=== PATIENT | female | born 1985 | race Caucasian/White ===

== ENCOUNTER 2017-07-08 06:11 | Day surgery (SDC) | payer OTHER ==
[~2017-07-08] VITALS: Ht 162.6 cm; Wt 74.8 kg
[~2017-07-08 06:11] MED LIST: ACET50TA PO; CLAR10CA3 PO; IBUP80TA PO; NORA0.35 PO; NORCOTAB PO; VITMTA PO; [UNRECOGNIZED DRUG - OTHER] PO; [UNRECOGNIZED DRUG - OTHER] PO
[2017-07-08] MEDS ORDERED: LR 1,000 ML IV SCH ×2 (06:15→09:15)
[2017-07-08 06:53] LABS: CONTROL LINE UCG INT CTR LINE PRESENT
[2017-07-08] MEDS ORDERED: ONDANSETRON 4MG/2ML VIAL (J2405) As Ordered ONE (07:13)
[2017-07-08] MEDS ORDERED: fentaNYL 100 MCG/2 ML INJECTION (J3010) As Ordered ONE ×3 (07:13→09:06)
[2017-07-08] MEDS ORDERED: METOCLOPRAMIDE INJ 10MG/2ML VIAL (J2765) As Ordered ONE (07:13)
[2017-07-08] MEDS ORDERED: LIDOCAINE 2% INJ 100 MG/5 ML SDV (FOR ANES.) As Ordered ONE (07:13)
[2017-07-08] MEDS ORDERED: ROCURONIUM BROMIDE 50 MG/5 ML VIAL/SYRINGE As Ordered ONE (07:13)
[2017-07-08] MEDS ORDERED: MIDAZOLAM INJ 2 MG/2 ML VIAL (J2250) As Ordered ONE (07:13)
[2017-07-08] MEDS ORDERED: PROPOFOL 200 MG/20 ML VIAL As Ordered ONE (07:13)
[2017-07-08] MEDS ORDERED: KETOROLAC 60 MG/2 ML VIAL (J1885) As Ordered ONE (07:13)
[2017-07-08] MEDS ORDERED: LIDOCAINE 1% SDV INJ 30 ML VIAL As Ordered ONE (07:19)
[2017-07-08] MEDS ORDERED: BUPIVACAINE HCL 0.25% 30 ML VIAL As Ordered ONE (07:19)
[2017-07-08] MEDS ORDERED: PERCOCET 5MG/325MG TAB As Ordered ONE (09:06)
[2017-07-08] MEDS: fentaNYL 100 MCG/2 ML INJECTION (J3010) IV PRN ×4 (09:08→09:25)
[2017-07-08] MEDS ORDERED: PERCOCET 5MG/325MG TAB PO PRN (09:15)
[2017-07-08] MEDS ORDERED: KETOROLAC 30 MG/ML VIAL (J1885) IV PRN (09:15)
[2017-07-08] MEDS ORDERED: ONDANSETRON 4MG/2ML VIAL (J2405) IV PRN ×2 (09:15)
[2017-07-08] MEDS ORDERED: NORCO, ANEXSIA 5/325MG TABLET (HYDROcodone/ACETAMINOPHEN) PO PRN ×2 (09:15)
[2017-07-08 11:45] VITALS: BP 133/70
--- NOTE | 2017-07-26 12:24 | ROOPDOC ---
[facility] Report Of Operation Report of Operation DATE OF PROCEDURE: 07/08/2017 PREPROCEDURE DIAGNOSES: Umbilical hernia. POSTPROCEDURE DIAGNOSES: And small umbilical hernia with incarcerated preperitoneal fat. PROCEDURE: Laparoscopic umbilical hernia repair with 9 cm Parietex composite mesh has intraperitoneal onlay. SURGEON: Adina Piper MD FOOD AND BEVERAGE DIRECTOR: None ANESTHESIA: Gen. anesthesia ESTIMATED BLOOD LOSS: Approximately 10 mL. COMPLICATIONS: None. 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 PROCEDURE NOTE: A small hernia defect containing incarcerated preperitoneal fat was found. DESCRIPTION OF PROCEDURE: Patient was given a dose of Ancef 2 g IV for prophylactic antibiotic. She is brought to the operating room, placed supine on the table. Sequential Compression boots placed on both lower extremities for DVT prophylaxis. General endotracheal anesthesia started without any difficulty. Her abdomen was then prepped and draped widely in usual sterile fashion.Timeout was performed to verify correct patient, procedure site and additional clinical information prior to beginning the procedure. Entry to the abdomen done through a small incision at the left upper quadrant area, laterally placed close to the anterior axillary line. The Veress needle was inserted. Intra-abdominal location confirmed with saline drop technique. CO2 insufflation done to a pressure of 15 mmHg. Using the same incision a 5 mm Visiport was placed under direct vision of laparoscope. She was placed in a slight right lateral decubitus to gain some space on the left side of the abdomen. A second working port was placed at the left lower quadrant area above the anterior superior iliac spine level. We used a 5 mm 30 laparoscope for the procedure. A small umbilical defect was found. There is a nodularity on the superior portion of the umbilicus that I can palpate. This was reduced back into the abdomen. The peritoneal tissue was likewise dissected free the incarcerated preperitoneal fat tissue. Once the whole lump was reduced into the abdomen where the check for adequate hemostasis. The umbilical ligaments likewise a falciform ligaments were mostly flat and well away from the area for placement of the mesh. I chose a 9 cm round prepped X composite mesh. 2 transabdominal sutures were placed at the 6 and 12 o'clock position. A template of the mesh was created and its positioning centered onto the umbilicus was marked on the abdominal wall. This was rolled tightly, the 5 mm left lower quadrant port was removed and the mesh was placed through this incision into the abdomen. After replacing back the 5 mm port, we unrolled the mesh. An centered the mesh to the umbilical defect. Using a Josué Escalera passer suture a small stab incision created at the 6 and 12 o'clock position. The transabdominal sutures were pulled out transabdominally. I decreased the abdominal pressure to 10 mmHg. With adequate coverage of the umbilical defect and the mesh is laying flat on the abdominal wall. The transabdominal sutures was tied off snug but not tight. 2 rows of secure strap absorbable tacks were placed roughly 2 cm apart. The outer row was at the periphery of the mesh. The inner row was just outside of the umbilical defect. We checked for adequate hemostasis. The preperitoneal fat that was removed was retrieved back through one of our port sites. The abdomen was then deflated and all ports removed. The port site skin incision was closed with 4-0 Monocryl in subcutaneous fashion. Dermabond dressing was used to cover the port sites as well as the stab incisions. Patient was then promptly awakened, extubated and brought to recovery room stable. ADINA PIPER MD Jul 26, 2017 12:24
== END 2017-07-08 11:46 | disposition home or self-care (01) ==
LOC: M SDC 06:11
PROVIDERS: ATTEND Surgery
DX: K42.0 Umbilical hernia with obstruction, without gangrene (principal); F41.9 Anxiety disorder, unspecified; Z88.8 Allergy status to other drugs, medicaments and biological substances; Z79.3 Long term (current) use of hormonal contraceptives; Z72.0 Tobacco use
CPT/HCPCS: 49653; 84703; C1781; J0690; J1885; J2250; J2405; J2765; J3010

== ENCOUNTER → 2017-07-21 | Outpatient (CLI) | payer OTHER ==
--- NOTE | 2017-07-21 17:30 | REP ---
Clinical: Preoperative assessment. Umbilical hernia . Comparison: No. Technique: PA and lateral. Findings: The mediastinum and cardiac silhouette are normal. The lung petty are clear and without acute consolidation, effusion, or pneumothorax. The skeletal structures are intact and normal. Impression: 1. No acute cardiopulmonary process. Signed by Fidencio Osorio MD 07/21/2017 05:21 P
== END ==
LOC: M RAD 09:12
PROVIDERS: ATTEND Surgery
DX: K42.9 Umbilical hernia without obstruction or gangrene (principal)

== ENCOUNTER 2018-07-20 18:17 | Emergency (ER) | payer OTHER ==
[2018-07-20] MEDS: PANTOPRAZOLE 40MG INJ (PROTONIX) (C9113) IV (20:09)
[2018-07-20] MEDS: NS 1,000 ML IV (20:09)
[2018-07-20] MEDS: ONDANSETRON 4MG/2ML VIAL (J2405) IV (20:09)
[2018-07-20 20:14] LABS: BASO # 0.1 10^3/uL (0.0-0.2); BASO % 0.6 % (0.0-1.0); EOS # 0.1 10^3/uL (0.0-0.50); EOS % 1.8 % (0.0-3.0); HEMATOCRIT 46.6 % (36.0-47.0); HEMOGLOBIN 15.6 g/dl (12.0-15.5); IMMATURE GRANULOCYTE % 0.5 % (0-3.0); LYMPH % 25.5 % (24.0-44.0); MEAN CORPUSCULAR HEMOGLOBIN 29.7 pg (27.0-33.0); MEAN CORPUSCULAR HGB CONC 33.5 g/dl (32.0-36.5); MEAN CORPUSCULAR VOLUME 88.6 fl (80.0-96.0); MONO # 0.7 10^3/uL (0.0-0.8); MONO % 8.5 % (0.0-5.0); NEUTROPHILS % 63.1 % (36.0-66.0); PLATELET COUNT, AUTOMATED 246 10^3/uL (150-450); RED BLOOD COUNT 5.26 10^6/uL (4.00-5.40); RED CELL DISTRIBUTION WIDTH 11.8 % (11.5-14.5); WHITE BLOOD COUNT 7.9 10^3/uL (4.0-10.0)
[2018-07-20 20:21] LABS: APPEARANCE, URINE CLEAR (CLEAR); BACTERIA, URINE AUTO NEGATIVE (NEGATIVE); BILIRUBIN, URINE AUTO NEGATIVE (NEGATIVE); BLOOD, URINE BLOOD NEGATIVE (NEGATIVE); COLOR, URINE YELLOW (YELLOW); GLUCOSE, URINE (UA) AUTO NEGATIVE (NEGATIVE); KETONE, URINE AUTO NEGATIVE (NEGATIVE); LEUKOCYTE ESTERASE, URINE AUTO NEGATIVE (NEGATIVE); NITRITE, URINE AUTO NEGATIVE (NEGATIVE); PROTEIN, URINE AUTO NEGATIVE (NEGATIVE); RBC, URINE AUTO 0 /HPF (0-3); SPECIFIC GRAVITY URINE AUTO 1.012 (1.002-1.035); SQUAMOUS EPITHELIAL CELL UR AU 2 /HPF (0-6); UROBILINOGEN, URINE AUTO 0.2 mg/dL (0.0-2.0); WBC, URINE AUTO 0 /HPF (0-3)
[2018-07-20 20:25] LABS: ALBUMIN 4.5 GM/DL (3.2-5.2); ALBUMIN/GLOBULIN RATIO 1.36 (1.00-1.93); ALKALINE PHOSPHATASE 59 U/L (45-117); ALT/SGPT 55 U/L (12-78); AMYLASE 45 U/L (25-115); ANION GAP 8 MEQ/L (8-16); AST/SGOT 33 U/L (7-37); BILIRUBIN,DIRECT 0.1 MG/DL (0.0-0.2); BILIRUBIN,TOTAL 0.4 MG/DL (0.2-1.0); BLOOD UREA NITROGEN 12 MG/DL (7-18); CALCIUM LEVEL 9.7 MG/DL (8.5-10.1); CARBON DIOXIDE LEVEL 29 MEQ/L (21-32); CHLORIDE LEVEL 103 MEQ/L (98-107); CREATININE FOR GFR 0.77 MG/DL (0.55-1.30); GLOMERULAR FILTRATION RATE > 60.0 (>60); GLUCOSE, FASTING 80 MG/DL (70-100); LIPASE 127 U/L (73-393); SODIUM LEVEL 140 MEQ/L (136-145); TOTAL PROTEIN 7.8 GM/DL (6.4-8.2)
[2018-07-20 20:46] LABS: ADD MORPHOLOGY? YES; POS COUNT POS FLAG
[2018-07-20 20:47] LABS: PLATELET ESTIMATE NORMAL (NORMAL)
[2018-07-20 20:48] LABS: PLATELET CLUMPS SMALL AMT
== END 2018-07-20 21:26 | disposition home or self-care (01) ==
LOC: M ED 18:17
DX: K29.00 Acute gastritis without bleeding (principal); Z79.899 Other long term (current) drug therapy; Z79.3 Long term (current) use of hormonal contraceptives; Z88.2 Allergy status to sulfonamides; Z88.8 Allergy status to other drugs, medicaments and biological substances; Z87.891 Personal history of nicotine dependence
CPT/HCPCS: C9113

== ENCOUNTER → 2019-07-10 | Outpatient (REF) | payer OTHER ==
[~2019-07-10] MED LIST changes: -ACET50TA PO; +AMOX-CLAV; +BENA25CA4 PO; +CITA20TA6; +HYDR-3715 PO; +MAPA500T17 PO; -NORCOTAB PO; +PROT1TAB2 PO; +ZOFR4TAB14 PO
[2019-07-13 08:10] LABS: BORDETELLA PARAPERTUSSIS PCR Negative (Negative); BORDETELLA PERTUSSIS BY PCR Negative (Negative)
== END ==
LOC: M LAB REF 09:05
PROVIDERS: ATTEND Physician Assistant Medical
DX: A37.90 Whooping cough, unspecified species without pneumonia (principal)

== ENCOUNTER 2019-09-24 17:26 | Outpatient (CLI) | payer OTHER ==
[~2019-09-24] VITALS: Ht 162.6 cm; Wt 93.4 kg
[2019-09-24 17:49] VITALS: BP 125/70
[2019-09-24] MEDS ORDERED: VITA65TA PO (18:03)
[2019-09-24] MEDS ORDERED: TUMS500C PO (18:03)
--- NOTE | 2019-09-24 18:42 | IPNPDOC ---
Text Note Date of Service The patient was seen on 09/24/19. NOTE 34 yo at 36+5 weeks gestation presented to L&D with the complaint of intermittent cramping since last night that has persisted throughout the day. In addition, she hasn't felt her baby move as much as usual this afternoon. She denies any vaginal bleeding or leakage of fluid. She has had mild discharge. Chaperoned by L&D RN Vitals - VSS, afebrile, normotensive, non tachycardic General - AAOX3, sitting up in bed, NAD, pleasant and conversant Cervix - Ft/50/high FHR tracing - Cat I with moderate variability, +accels, no decels, rare ctx on toco. Very active fetus. Lyndsay felt significant movement while in triage and was reassured. Cat I tracing throughout monitoring. Cervix only FT dilated and she is not in labor. She has an appointment scheduled for next week. Return to care sooner for any urgent concerns. All questions answered. DO KERON Cedillo Fishbone, I+O VSAugie, I+O Vital Signs Date Time Temp Pulse Resp B/P (MAP) Pulse Ox O2 Delivery O2 Flow Rate FiO2 09/24/19 18:00 77 09/24/19 17:49 98.6 18 125/70 (88) MANDA VIDES DO Sep 24, 2019 18:42
[2019-09-24 18:53] VITALS: BP 124/66
== END 2019-09-24 19:00 | disposition home or self-care (01) ==
LOC: M LDO 17:26
PROVIDERS: ATTEND Obstetrics & Gynecology
DX: O26.893 Other specified pregnancy related conditions, third trimester (principal); R10.30 Lower abdominal pain, unspecified; O36.8130 Decreased fetal movements, third trimester, not applicable or unspecified; O47.03 False labor before 37 completed weeks of gestation, third trimester; Z3A.36 36 weeks gestation of pregnancy
CPT/HCPCS: 59025; G0378; G0463

== ENCOUNTER 2019-09-27 11:22 | Outpatient (CLI) | payer OTHER ==
[~2019-09-27] VITALS: Ht 162.6 cm; Wt 94.6 kg
[~2019-09-27 11:22] MED LIST changes: +TUMS500C PO; +VITA65TA PO
[2019-09-27 11:45] VITALS: BP 116/64
--- NOTE | 2019-09-27 14:06 | REP ---
Limited obstetric sonography: History: Arrhythmia. Supervision of . Findings: Scanning demonstrates a single living intrauterine gestation in a cephalic lie. Placenta is right lateral and fundal without evidence of previa or abruption, grade 2. heart rate is recorded at 129 beats per minute. Amniotic fluid is subjectively normal. STEVIE is normal 21.1 cm. Biophysical profile score is eight out of a possible eight. SD ratio in the umbilical cord artery by Doppler is 2.63 (1.6 to 2.60). Electronically Signed by Uriel Daniel MD 09/27/2019 01:59 P
--- NOTE | 2019-09-27 18:21 | IPNPDOC ---
Text Note Date of Service The patient was seen on 09/27/19. NOTE S: Ms. Arnett is a 34yo at 37+1wks who presents to LND triage for NST. Ms. Arnett had a growth US at [facility] today in which a arrhythmia was detected; he notified this administrative underwriter about his findings. She was initially sent to the OB clinic for an NST, but once on the monitor, a deceleration was noted, as well as the audible arrhythmia. She was then brought here for assessment. Ms. Arnett reports +FM, denies LOF/VB/CTX. Her has been mostly uncomplicated; she has a history of macrosomia x2; last with shoulder dystocia. O: VSS FHR 145, moderate variability, + accels, no decels noted CTX: none BPP: 8/8 Consulted with MFM from [facility] and he recommended a BPP and repeat NST in a week. A: 34yo at 37+1wks, Reactive NST (+audible arrhythmia); BPP 8/8; overall reassuring status f/u [id number] for MABEL and NST in clinic f/u in LND PRN Labor/danger precautions reviewed IOL scheduled for [id number] VS,Fishbone, I+O VS, Fishbone, I+O Vital Signs Date Time Temp Pulse Resp B/P (MAP) Pulse Ox O2 Delivery O2 Flow Rate FiO2 09/27/19 11:45 98.1 77 16 116/64 (81) OLAMIDE ROCHE CNM Sep 27, 2019 18:21
== END 2019-09-27 14:38 | disposition home or self-care (01) ==
LOC: M LDO 11:22
PROVIDERS: ATTEND Registered Nurse Maternal Newborn
DX: O76 Abnormality in fetal heart rate and rhythm complicating labor and delivery (principal); Z3A.37 37 weeks gestation of pregnancy
CPT/HCPCS: 59025; 76815; 76819; 76820; G0378; G0463

== ENCOUNTER 2019-10-12 22:04 | Inpatient (IN) | payer OTHER ==
[~2019-10-12] VITALS: Ht 162.6 cm; Wt 93.8 kg
[2019-10-12 22:20] VITALS: BP 126/70
[2019-10-12] MEDS ORDERED: PENICILLIN G POTASSIUM IV 5 MU in D5W MINI-BAG PLUS 100 ML IV STA (22:51)
[2019-10-12] MEDS ORDERED: LACTATED RINGER'S 1000 ML IV STA (22:51)
--- NOTE | 2019-10-12 23:06 | HPEPDOC ---
Obstetrical History & Physical General Date of Admission Oct 12, 2019 at 22:04 History of Present Illness 34 yo at 39+2 weeks gestation by LMP of 10Jan2019 c/w 8+5 week US on presents to L&D with the complaint of a gush of clear fluid at 2119 followed by continuous leaking ever since. She denies feeling any significant contractions or vaginal bleeding. She endorses excellent movement. Chief Complaint: LOF, term Information Provided By: Patient Age: 34 : 3 Term: 2 Pre-term: 0 Abortions: 0 Livin Care Care: Good Care Dating Final EDC: Oct 17, 2019 Final EDC for Daily Update: Oct 17, 2019 Final EDC by: LMP LMP: Jan 10, 2019 1st Trimester Date: Mar 13, 2019 (8+5 week US on 13Mar2019 c/w LMP dating. REG remains 17Oct2019.) Antepartum Course Diagnos(e)s History of macrosomia with shoulder dystocia last ---> delivered at 41 weeks. Awareness. heart rate arrhythmia ---> likely benign. Awareness for after delivery. Quit smoking GBS positive Anxiety --> previously on celexa but symptoms stable Past Medical History Past Obstetrical History : Past Obstetrical History: Multigravida (Term X2 both at 41 weeks. 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 Past Medical History Medical History GERD Anxiety --> previously on celexa but now stable off Surgical History: Appendectomy, Other (L/S umbilical hernia repair) Family History Significant Family History: No pertinent family hx Social History Marital Status: Family situation: Spouse/partner home Psychosocial History: Anxiety * Smoker: former Smoker (Quit smoking January 2019) Alcohol: Denies Drugs: denies Imunizations Tdap status: current Influenza Status: current Allergies Coded Allergies: Sulfa (Sulfonamide Antibiotics) (Verified Adverse Reaction, Mild, NAUSEA, 09/27/19) Medications Scheduled Calcium Carbonate (Tums) 200 Mg Tab.chew, 2 TAB PO QID for cough and congestion Vit 10/Iron Fum/Folic (Vitafol-Ob Caplet) 1 Each Tablet, 1 TAB PO DAILY Physical Examination Physical Examination Chaperoned by L&D RN GENERAL: Alert and oriented times three. ABDOMEN: Gravid and non-tender to touch. FETUS: Is vertex (VTX) by sterile vaginal examination (SVE) EXTREMITIES: No edema. PELVIC: Grossly ruptured membranes, clear fluid, confirmed during cervical exam. Nitrazine positive. Laboratory Data [facility] Laboratory Tests 2 10/12/19 22:09: Serology Scanned Report Hepatitis B Testing Urine Culture: No Growth Pertinent Laboratoy Data Blood Type: B+ RBC Antibody Screen: Negative HIV: Negative Hepatitis B: Negative Hepatitis C: Unknown Rapid Plasma Reagin: Nonreactive Rubella: Immune Varicella: Immune Chlamydia/Gonorrhea: Negative Group B Streptococcus: Positive Quad Screen Test: Unknown Cystic Fibrosis: Unknown Glucose Tolerance Test: 168 (Abnormal early 1hr GTT, normal 3 hr GTT X2) Anatomy Ultrasound Ultrasound Date: Jun 12, 2019 Placenta Location: Posterior Normal Anatomy: Yes Placenta Previa: No Vaginal Examination Dilation: 3 cm Effacement: 80% Station: -2 Cervical Consistency: Soft Cervical Position: Middle Presentation: Cephalic presentation Position: Vertex (occiput) Assessment Heart Rate (FHR): 145 Variability: Moderate Accelerations: Positive Decelerations: None (Rare dropped beats c/w known FHR arrhythmia ) Tocometer Contractions: Yes Frequency: irregular Duration: less than 60 seconds Strength: palpated as mild (Patient doesn't feel contractions) Assessment/Plan Assessment 34 yo at 39+2 weeks gestation presented to L&D with grossly ruptured membranes. Plan Admit to L&D for expectant management of grossly ruptured membranes. If labor does not begin within the next several hours, will start pitocin. Apply IV fluids. GBS positive. Initiate IV PCN protocol. Regular diet. Patient may have epidural if desired. Anticipate . Perez Pereyra, DO Labor and Delivery Counseling L&D counseling and consent for Vaginal / Operative vaginal delivery Deliver your baby through the vagina with possible assistance of forceps or vacuum device if needed for maternal or indications. Forceps and vacuum are devices that can assist with vaginal delivery when normal pushing efforts cannot achieve delivery on their own or when delivery is needed in an emergency for baby's well-being. Medications may be required to induce or augment (help) your labor in order to achieve a vaginal delivery. An episiotomy may be required to help your baby to delivery vaginally. You may also require repair of any lacerations or tears of your vagina or vulva that are caused by delivery. In some cases, emergencies can occur that require an emergency section delivery so quickly that there may not be enough time to stop and complete consent forms for section. Understand that if this occurs, your providers will discuss the need for a section with you before they proceed with surgery. section is the delivery of your baby through an incision in your abdomen. In some situations, section may be safer to mom and baby than continuing labor and is only performed when clinically indicated. Risks of vaginal delivery include but are not limited to: Bleeding, infection, injury to the vagina, pelvic structures, injury to baby, damage to the uterus, reactions to anesthesia, uterine rupture, risk of hysterectomy for life threatening bleeding, or . Medications used to induce or augment labor may increase your risk for infection, uterine tachysystole, uterine rupture, heart rate abnormalities, need for emergency delivery or possible hysterectomy, and hemorrhage. Additional risks for use of forceps and vacuum include: increased risk of perineal and vaginal lacerations, risk of urinary or bowel incontinence, increased risk of injury to baby with bruising, scratches, hematomas on the head, or intracranial bleeding. Ms. Arnett verbalized understanding of all these risks and consents for treatment. She also consents to receiving a blood transfusion if needed. DO PEEWEE Pereyra CHRISTOPHER J. DO Oct 12, 2019 23:06
[2019-10-12 23:15] LABS: HEMATOCRIT 37.1 % (36.0-47.0); HEMOGLOBIN 11.9 g/dl (12.0-15.5); MEAN CORPUSCULAR HEMOGLOBIN 28.6 pg (27.0-33.0); MEAN CORPUSCULAR HGB CONC 32.1 g/dl (32.0-36.5); MEAN CORPUSCULAR VOLUME 89.2 fl (80.0-96.0); PLATELET COUNT, AUTOMATED 209 10^3/uL (150-450); RED BLOOD COUNT 4.16 10^6/uL (4.00-5.40); WHITE BLOOD COUNT 7.7 10^3/uL (4.0-10.0)
[2019-10-13] VITALS (41 sets, daily range): BP systolic 92–135; BP diastolic 49–76
[2019-10-13] MEDS: PENICILLIN G POTASSIUM IV 2.5 MU in IV 1 EA IV SCH ×4 (03:41→15:35)
[2019-10-13] MEDS ORDERED: OXYTOCIN DRIP 30 UNITS in IV 1 EA IV SCH ×2 (06:30→21:25)
--- NOTE | 2019-10-13 08:05 | IPNPDOC ---
Text Note Date of Service The patient was seen on 10/13/19. NOTE Contractions only sporadic. Pitocin ordered. FHR remains Cat I. DO Roddy VS,Augie, I+O VS, Augie, I+O Laboratory Tests 10/12/19 23:05 Vital Signs Date Time Temp Pulse Resp B/P (MAP) Pulse Ox O2 Delivery O2 Flow Rate FiO2 10/13/19 04:08 97.6 71 115/66 (82) 10/12/19 22:20 18 I&O- Last 24 Hours up to 6 AM 10/13/19 06:00 Intake Total 850 ml Balance 850 ml MANDA VIDES DO Oct 13, 2019 08:05
--- NOTE | 2019-10-13 09:50 | IPN ---
DATE: 10/13/2019 34-year-old, 3, para 2 was admitted with spontaneous rupture of membranes and minimal contractions. She had no vaginal bleeding. On initial assessment when she came in she was apparently 3 cm posterior with clear liquor leaking and moderate contractions. Overnight she maintained a category 1 strip but poor contractions. On reevaluation this morning the cervix is way posterior, maybe 2 cm thick. Clear liquor was noted. Vertex not well applied to the cervix and -3 station. With a category 1 strip we have elected to go ahead and do augmentation with Pitocin. Her past risk factors are that she has had a shoulder dystocia after a 10 pound 9 ounce baby, that she is 3, para 2. The patient understands and brought up the event of shoulder dystocia and again we reiterated the fact that this possibly could happen again and that shoulder dystocia is significant for trauma to the baby either permanent or intermittent or transient. The patient expressed understanding. Pitocin will be started and reevaluation in a few hours' time.
[2019-10-13] MEDS: LR 1,000 ML IV SCH ×2 (11:42→17:29)
[2019-10-13] MEDS ORDERED: FENTANYL 2MCG/ML ROPIVACAINE 0.2% IN 0.9% NACL 100ML IVBAG As Ordered ONE (15:39)
--- NOTE | 2019-10-13 16:01 | IPN ---
DATE: 10/13/2019 A 34-year-old 2, para 2 was admitted with spontaneous rupture of membranes 19 hours ago. She was apparently 3 cm then with clear liquor and moderate contractions. She requested to be checked presently, as she was considering wanting to have an epidural, as the pain tolerance was quite low. On evaluation, category 1 strip. She is still basically 2 cm, thick, posterior to mid position, and not well applied to the cervix. Minimal amount of fluid is noted per vagina. She has had adequate antibiotic coverage, and she has been afebrile. Vital signs: Her blood pressure is 103/54, respirations 16, pulse 53, temperature 97.8. She has basically had minimal change in the last 8 or 9 hours despite the fact she has Pitocin running. The possibility of her relaxing perineal body in order to allow the descending part to descend even further was a thought process, and we left that with her. Should she wish to have the epidural, there is no contraindication at the present time. We have a category 1 strip. She is normotensive normal, and she is afebrile.
[2019-10-13] MEDS ORDERED: NALOXONE INJ 0.4 MG/1 ML VIAL (J2310) IV PRN (18:00)
[2019-10-13] MEDS ORDERED: EPIDURAL/PCA KEYS XX PRN (18:00)
[2019-10-13] MEDS ORDERED: REFRIGERATOR IV KEYS XX PRN (18:00)
[2019-10-13] MEDS ORDERED: FENTANYL/ROPIVACAINE/NACL BAG 100 ML EPIDURAL SCH (18:00)
[2019-10-13] MEDS ORDERED: ONDANSETRON 4MG/2ML VIAL (J2405) IV PRN (18:00)
[2019-10-13] MEDS ORDERED: EPIDURAL COMMENT XX SCH (18:00)
[2019-10-13] MEDS ORDERED: ePHEDrine SULFATE 25 MG/5 ML(5MG/ML) SYRINGE IV PRN (18:00)
[2019-10-13] MEDS ORDERED: diphenhydrAMINE INJ 50MG/ML VIAL (J1200) IV PRN (18:00)
[2019-10-13] MEDS ORDERED: IBUPROFEN 600 MG TAB PO PRN (21:30)
[2019-10-13] MEDS ORDERED: ACETAMINOPHEN TAB 650MG DOSE (2X325MG) PO PRN (21:30)
[2019-10-13] MEDS ORDERED: METHYLERGONOVINE MALEATE 0.2 MG TAB PO PRN (21:30)
[2019-10-13] MEDS ORDERED: ACETAMINOPHEN 650 MG SUPP PR PRN (21:30)
[2019-10-13] MEDS ORDERED: ANUSOL HC CREAM 30GM TOP PRN (21:30)
[2019-10-13] MEDS ORDERED: MOM 30ML SUSPENSION UDC PO PRN (21:30)
[2019-10-13] MEDS ORDERED: DIBUCAINE 1% OINTMENT 30GM TOP PRN (21:30)
[2019-10-13] MEDS ORDERED: DOCUSATE SODIUM 100 MG CAP PO PRN (21:30)
[2019-10-13 21:42] LABS: CORD GAS ABE A -4.7; CORD GAS HCO3 A 21.7 MEQ/L; CORD GAS O2 SAT A 71.1 %; CORD GAS PCO2 A 44.7 mmHg; CORD GAS PH A 7.304 UNITS; CORD GAS PO2 A 32.5 mmHg; CORD GAS SBC A 19.9 MEQ/L; CORD GAS TCO2 A 23.1 MEQ/L
[2019-10-13 21:45] LABS: CORD GAS ABE V -6.8; CORD GAS HCO3 V 23.2 MEQ/L; CORD GAS PCO2 V 63.8 mmHg; CORD GAS PH V 7.178 UNITS; CORD GAS TCO2 V 25.1 MEQ/L
[2019-10-13] MEDS ORDERED: OXYTOCIN DRIP 30 UNITS in IV 1 EA IV ONE (22:00)
[2019-10-13] MEDS ORDERED: MEASLES,MUMPS,RUBELLA VACCINE INJ (MMR-II) (90707) SC SCH (22:00)
[2019-10-13] MEDS ORDERED: OXYTOCIN INJ 10 UNITS/ML VIAL (J2590) IV ONE (22:00)
[2019-10-13] MEDS ORDERED: miSOPROStol 200 MCG TAB (S0191) PR ONE (22:00)
[2019-10-13] MEDS ORDERED: RHOGAM 300 MCG (1500 IU) INJ (J2790) IM SCH (22:00)
[2019-10-14 00:15] VITALS: BP 109/52
[2019-10-14] MEDS: IBUPROFEN 800 MG TAB PO PRN ×2 (05:15→15:32)
[2019-10-14 06:00] VITALS: BP 112/56
[2019-10-14 06:18] LABS: HEMATOCRIT 38.2 % (36.0-47.0); HEMOGLOBIN 12.8 g/dl (12.0-15.5); MEAN CORPUSCULAR HEMOGLOBIN 29.6 pg (27.0-33.0); MEAN CORPUSCULAR HGB CONC 33.5 g/dl (32.0-36.5); MEAN CORPUSCULAR VOLUME 88.4 fl (80.0-96.0); PLATELET COUNT, AUTOMATED 216 10^3/uL (150-450); RED BLOOD COUNT 4.32 10^6/uL (4.00-5.40)
[2019-10-14] MEDS ORDERED: PRENATAL VITAMINS CHEWABLE TABLET PO SCH (09:00)
[2019-10-14] MEDS: ACETAMINOPHEN 500 MG TAB PO PRN ×2 (14:18→22:12)
[2019-10-14 18:00] VITALS: BP 110/60
[2019-10-15 06:00] VITALS: BP 117/59
[2019-10-15] MEDS ORDERED: PROC1CRE5 TOP (06:27)
[2019-10-15] MEDS ORDERED: DIBU10OI TOP (06:27)
[2019-10-15] MEDS ORDERED: DOCU100C16 PO (06:27)
[2019-10-15] MEDS ORDERED: IBUP80TA PO (06:27)
--- NOTE | 2019-10-15 08:15 | DN ---
DATE: DELIVERY NOTE: This lady is a 5, para 2, admitted at 39 and 2 weeks of gestation with spontaneous rupture of membranes. With epidural in place spontaneous vaginal delivery of female infant, 8 pounds 6 ounces (3810 grams) of 9 and 9 at one and five minutes respectively. Placenta delivered spontaneously thereafter. Three-vessel cord, membranes and tissues intact. She had a bit of an atonic uterus and with vigorous massage the uterus contracted well under Pitocin running of 125 mL/hour, however for prophylaxis she was given 1000 Cytotec per rectum. Examination of the anterior, posterior and lateral ramirez indicated intact. No evidence of lacerations or abrasions. Again, we monitored the uterus as well contracted and there was no required repair. The arterial blood gas was 7.3 with a base excess of -4.7. Baby had terminal meconium and voided at delivery. There is a cord times one loose. Venous pH is pending.
--- NOTE | 2019-10-15 14:26 | DSES ---
DATE OF ADMISSION: 10/12/2019 DATE OF DISCHARGE: 10/15/2019 34-year-old, 3 now para 3, admitted with spontaneous rupture of membranes at 39 and 2 weeks of gestation. Had a spontaneous vaginal delivery of a live female , 8 pounds 6 ounces, 3810 grams, Apgars of 9 and 9 at one and five minutes respectively. Arterial pH 7.30, base excess -4.17; venous pH 7.17, base excess -6.8. 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 On discharge, her blood pressure is 117/59, respirations 20, pulse 52, temperature 97.6. Her admitting hemoglobin was 11.9, hematocrit 37.1 and platelets were 209. Discharge hemoglobin 12.8, hematocrit 38.4 and platelets 216. We discussed phlebitis, cystitis, mastitis, endometritis, cellulitis; diet, exercise and pain management; perineal, breast and wound care. On the rest examination, she is normocephalic, atraumatic. Neck: Full range of motion. Pupils equal and reactive to light. Distal pulses symmetric. No evidence of deep vein thrombosis (DVT), pulmonary embolism (PE) or superficial phlebitis. Chest is clear bilaterally at bases. No wheezes or rhonchi. No costovertebral angle (CVA) tenderness. Abdomen soft, uterus two below. Lochia is moderate. Four quadrant bowel sounds are noted. Perineum is intact. She has no rashes, lesions or pruritus. No arthralgia or myalgia. No complaint of joint pain. No complaint of cough, shortness of breath or dyspnea on exertion. She has no urgency or frequency. No nausea, vomiting, diarrhea or constipation. In summary, we have a term gestation who delivered a live female infant. Plan for control are oral contraceptives. She will have a 6-week checkup at [place]. Discharged improved. edited: 10/16/2019 0754 stas GALLEGO
== END 2019-10-15 14:15 | disposition home or self-care (01) | DRG 807 ==
LOC: M LDI 22:04 → M OBS 10-13 23:51
PROVIDERS: ADMIT Obstetrics & Gynecology; ATTEND Obstetrics & Gynecology
PROC: 10E0XZZ Delivery of Products of Conception, External Approach (ICD-10-PCS; principal; 2019-10-13)
DX: O99.824 Streptococcus B carrier state complicating childbirth (principal); Z37.0 Single live birth; Z3A.39 39 weeks gestation of pregnancy; O69.81X0 Labor and delivery complicated by cord around neck, without compression, not applicable or unspecified

== ENCOUNTER → 2019-11-09 | Outpatient (REF) | payer OTHER ==
[~2019-11-09] MED LIST changes: +DIBU10OI TOP; +DOCU100C16 PO; +PROC1CRE5 TOP
== END ==
LOC: M WUC 18:48
PROVIDERS: ATTEND Physician Assistant
DX: J02.9 Acute pharyngitis, unspecified (principal)

== ENCOUNTER → 2019-12-28 | Outpatient (REF) | payer OTHER | LOC: M LAB REF 20:26 | PROVIDERS: ATTEND Physician Assistant | DX: R05 Cough (principal) ==

== ENCOUNTER → 2023-08-30 | Outpatient (REF) | payer OTHER ==
[~2023-08-30] MED LIST changes: -DIBU10OI TOP; +DIBU28OI2 TOP
== END ==
LOC: M LAB REF 21:31
PROVIDERS: ATTEND Physician Assistant Medical
DX: J02.9 Acute pharyngitis, unspecified (principal)

== ENCOUNTER → 2023-09-15 | Outpatient (CLI) | payer OTHER | LOC: M WHC 12:30 | PROVIDERS: ATTEND Nurse Practitioner Family | DX: R92.30 Dense breasts, unspecified (principal); Z80.3 Family history of malignant neoplasm of breast ==

== ENCOUNTER → 2023-09-21 | Outpatient (CLI) | payer OTHER | LOC: M WHC 10:53 | PROVIDERS: ATTEND Nurse Practitioner Family | DX: R92.30 Dense breasts, unspecified (principal); Z80.3 Family history of malignant neoplasm of breast | CPT/HCPCS: 76642; 77066; G0279 ==

== ENCOUNTER 2023-11-13 00:25 | Emergency (ER) | payer OTHER ==
[~2023-11-13] VITALS: Ht 162.6 cm; Wt 74.7 kg
[2023-11-13] MEDS ORDERED: LEXA5TAB13 PO (00:32)
[2023-11-13] MEDS ORDERED: LINE1TAB6 PO (00:32)
[2023-11-13] MEDS ORDERED: KETOROLAC 30 MG/ML 1ML VIAL IV ONE (02:00)
[2023-11-13] MEDS ORDERED: ceFAZolin SOD 2 GM in IV 1 EA IV ONE (02:00)
[2023-11-13 02:04] LABS: HCG, SERUM QUALITATIVE NEGATIVE (NEGATIVE)
[2023-11-13 02:05] LABS: BASO % 0.4 % (0.0-1.0); EOS # 0.3 10^3/uL (0.0-0.5); EOS % 2.8 % (0.0-3.0); HEMATOCRIT 42.4 % (36.0-47.0); HEMOGLOBIN 13.9 g/dl (12.0-15.5); LYMPH # 1.8 10^3/uL (1.5-5.0); LYMPH % 17.9 % (24.0-44.0); MEAN CORPUSCULAR HEMOGLOBIN 30.1 pg (27.0-33.0); MEAN CORPUSCULAR HGB CONC 32.8 g/dl (32.0-36.5); MEAN CORPUSCULAR VOLUME 91.8 fl (80.0-96.0); MONO # 0.9 10^3/uL (0.0-0.8); MONO % 8.6 % (2.0-8.0); NEUTROPHILS % 70.1 % (36.0-66.0); PLATELET COUNT, AUTOMATED 247 10^3/uL (150-450); RED BLOOD COUNT 4.62 10^6/uL (4.00-5.40)
[2023-11-13 02:11] LABS: ERYTHROCYTE SEDIMENTATION RATE 34 mm/hr (0-20)
[2023-11-13 02:17] LABS: BLOOD UREA NITROGEN 5 MG/DL (9-23); CALCIUM LEVEL 8.9 MG/DL (8.5-10.1); CARBON DIOXIDE LEVEL 28 MMOL/L (20-31); CHLORIDE LEVEL 106 MMOL/L (98-107); CREATININE FOR GFR 0.68 MG/DL (0.55-1.30); GLOMERULAR FILTRATION RATE > 60.0 (>60); GLUCOSE, FASTING 99 MG/DL (60-100); POTASSIUM SERUM 3.3 MMOL/L (3.5-5.1); SODIUM LEVEL 141 MMOL/L (136-145)
[2023-11-13 02:51] LABS: RSV AMPLIFICATION NEGATIVE (NEGATIVE)
[2023-11-13] MEDS ORDERED: DALBAVANCIN 1,500 MG in D5W 250 ML IV ONE (03:20)
[2023-11-13 04:30] VITALS: BP 109/55; TEMP 98.2; O2SAT 98
== END 2023-11-13 04:37 | disposition home or self-care (01) ==
LOC: M ED 00:25
DX: L03.115 Cellulitis of right lower limb (principal); Z88.2 Allergy status to sulfonamides
CPT/HCPCS: 76882; 80048; 83605; 84703; 85025; 85652; 86140; 87040; 87631; 96365; 96375; 99284; J0875; J1885

== ENCOUNTER → 2023-12-31 | Outpatient (REF) | payer OTHER ==
[~2023-12-31] MED LIST changes: +LEXA5TAB13 PO; +LINE1TAB6 PO
[2023-12-31 20:22] LABS: Trichomonas vaginalis (AMP) NOT DETECTED (NEGATIVE)
[2023-12-31 20:46] LABS: GC DNA AMPLIFICATION NEGATIVE (NEGATIVE)
== END ==
LOC: M LAB REF 18:39
PROVIDERS: ATTEND Student in an Organized Health Care Education/Training Program
DX: R30.0 Dysuria (principal)

== ENCOUNTER 2024-08-26 04:25 | Observation (INO) | payer OTHER ==
[~2024-08-26] VITALS: Ht 162.6 cm; Wt 71.1 kg
[2024-08-26] VITALS (7 sets, daily range): BP systolic 113–132; BP diastolic 59–80; TEMP 97–98.1; O2SAT 96–98
[2024-08-26 05:16] LABS: BASO # 0.1 10^3/uL (0.0-0.2); BASO % 0.4 % (0.0-1.0); EOS % 0.3 % (0.0-3.0); HEMATOCRIT 47.4 % (36.0-47.0); HEMOGLOBIN 16.2 g/dl (12.0-15.5); LYMPH # 2.3 10^3/uL (1.5-5.0); LYMPH % 17.8 % (24.0-44.0); MEAN CORPUSCULAR HEMOGLOBIN 30.8 pg (27.0-33.0); MEAN CORPUSCULAR HGB CONC 34.2 g/dl (32.0-36.5); MEAN CORPUSCULAR VOLUME 90.1 fl (80.0-96.0); MONO # 0.8 10^3/uL (0.0-0.8); MONO % 6.1 % (2.0-8.0); NEUTROPHILS # 9.8 10^3/uL (1.5-8.5); NEUTROPHILS % 74.9 % (36.0-66.0); PLATELET COUNT, AUTOMATED 297 10^3/uL (150-450); RED BLOOD COUNT 5.26 10^6/uL (4.00-5.40)
[2024-08-26 05:38] LABS: ETHYL ALCOHOL (ETHANOL) 0.114 % (0.000-0.010)
[2024-08-26 05:40] LABS: CPK CREATINE PHOSPHOKINASE 73 U/L (34-145); SALICYLATE LEVEL < 3.0 MG/DL (<30)
[2024-08-26 05:42] LABS: THYROID STIMULATING HORMONE 2.344 uIU/ML (0.55-4.78)
[2024-08-26] MEDS: CHARCOAL ACTIVATED LIQUID 25GM/120ML BTL PO ONE (05:49)
[2024-08-26 05:56] LABS: ALKALINE PHOSPHATASE 51 U/L (35-104); ALT/SGPT 24 U/L (7.0-40); AST/SGOT 15 U/L (<34); BILIRUBIN,DIRECT 0.1 MG/DL (<0.4); BILIRUBIN,TOTAL 0.4 MG/DL (0.3-1.2); BLOOD UREA NITROGEN < 5 MG/DL (9-23); CALCIUM LEVEL 9.8 MG/DL (8.5-10.1); CARBON DIOXIDE LEVEL 26 MMOL/L (20-31); CHLORIDE LEVEL 107 MMOL/L (98-107); CREATININE FOR GFR 0.62 MG/DL (0.55-1.30); GLOMERULAR FILTRATION RATE > 60.0 (>60); GLUCOSE, FASTING 81 MG/DL (60-100); POTASSIUM SERUM 3.7 MMOL/L (3.5-5.1); SODIUM LEVEL 141 MMOL/L (136-145); TOTAL PROTEIN 7.2 G/DL (5.7-8.2)
[2024-08-26] MEDS ORDERED: LORazepam 2 MG TAB PO PRN (06:00)
[2024-08-26] MEDS ORDERED: MOM 30ML SUSPENSION UDC PO PRN (06:00)
[2024-08-26] MEDS ORDERED: ACETAMINOPHEN 325 MG TAB PO PRN (06:00)
[2024-08-26 06:06] LABS: AMPHETAMINES LEVEL URINE NEGATIVE (NEGATIVE); CANNABINOIDS URINE NEGATIVE (NEGATIVE); PHENCYCLIDINE URINE NEGATIVE (NEGATIVE)
[2024-08-26 06:07] LABS: BARBITURATES URINE NEGATIVE (NEGATIVE); BENZODIAZEPINES URINE NEGATIVE (NEGATIVE); COCAINE METABOLITE URINE NEGATIVE (NEGATIVE); METHADONE URINE NEGATIVE (NEGATIVE); OPIATES URINE NEGATIVE (NEGATIVE)
[2024-08-26 06:07] LABS: HCG, SERUM QUALITATIVE NEGATIVE (NEGATIVE)
[2024-08-26] MEDS: ONDANSETRON 4MG 2ML VIAL IV ONE (06:13)
[2024-08-26] MEDS ORDERED: LEXA1TAB PO (06:22)
[2024-08-26] MEDS ORDERED: HOME MED LIST COMPLETE! XX SCH (06:25)
[2024-08-26] MEDS: NS 1,000 ML IV SCH (06:44)
[2024-08-26] MEDS: THIAMINE 100 MG TAB PO SCH (06:45)
[2024-08-26] MEDS: MULTIVITAMINS/MINERALS THERAP 1 TAB PO SCH (09:33)
[2024-08-26] MEDS: ENOXAPARIN 40MG/0.4ML SYRINGE (J1650 PER 10MG) SC SCH (09:34)
[2024-08-26] MEDS: FOLIC ACID 1MG TAB PO SCH (09:34)
[2024-08-26] MEDS ORDERED: FOLI1TAB11 PO (20:13)
[2024-08-26] MEDS ORDERED: THIA100TA PO (20:13)
[2024-08-26] MEDS ORDERED: Multivitamins PO (20:13)
[2024-08-27 03:14] VITALS: BP 117/58; TEMP 98; O2SAT 98
[2024-08-27 07:43] VITALS: BP 120/60; TEMP 98; O2SAT 98
[2024-08-27 08:14] LABS: HEMATOCRIT 42.8 % (36.0-47.0); HEMOGLOBIN 14.4 g/dl (12.0-15.5); MEAN CORPUSCULAR HEMOGLOBIN 31.2 pg (27.0-33.0); MEAN CORPUSCULAR HGB CONC 33.6 g/dl (32.0-36.5); MEAN CORPUSCULAR VOLUME 92.6 fl (80.0-96.0); PLATELET COUNT, AUTOMATED 270 10^3/uL (150-450); RED BLOOD COUNT 4.62 10^6/uL (4.00-5.40); WHITE BLOOD COUNT 8.5 10^3/uL (4.0-10.0)
[2024-08-27 08:32] LABS: ALKALINE PHOSPHATASE 51 U/L (35-104); ALT/SGPT 16 U/L (7.0-40); AST/SGOT 9 U/L (<34); BILIRUBIN,TOTAL 0.3 MG/DL (0.3-1.2); BLOOD UREA NITROGEN 14 MG/DL (9-23); CALCIUM LEVEL 9.1 MG/DL (8.5-10.1); CARBON DIOXIDE LEVEL 27 MMOL/L (20-31); CHLORIDE LEVEL 107 MMOL/L (98-107); CREATININE FOR GFR 0.76 MG/DL (0.55-1.30); GLOMERULAR FILTRATION RATE > 60.0 (>60); GLUCOSE, FASTING 78 MG/DL (60-100); POTASSIUM SERUM 4.3 MMOL/L (3.5-5.1); SODIUM LEVEL 138 MMOL/L (136-145); TOTAL PROTEIN 5.9 G/DL (5.7-8.2)
[2024-08-27 12:26] VITALS: BP 110/59; TEMP 97.8; O2SAT 98
[2024-08-28] MEDS ORDERED: MULTTAB61 PO (13:15)
[2024-08-28] MEDS ORDERED: THIA100T7 PO (13:15)
[2024-08-28] MEDS ORDERED: FOLI1TAB11 PO (13:15)
== END 2024-08-27 14:05 ==
LOC: M ED 04:25 → M ED INP 04:26 → M PCU 06:41
PROVIDERS: ADMIT Internal Medicine; ATTEND Internal Medicine
DX: T43.212A Poisoning by selective serotonin and norepinephrine reuptake inhibitors, intentional self-harm, initial encounter (principal); F41.9 Anxiety disorder, unspecified; F32.A Depression, unspecified; K21.9 Gastro-esophageal reflux disease without esophagitis; Z90.49 Acquired absence of other specified parts of digestive tract; Z87.891 Personal history of nicotine dependence; F10.920 Alcohol use, unspecified with intoxication, uncomplicated; Z79.899 Other long term (current) drug therapy; Z88.2 Allergy status to sulfonamides; Z88.8 Allergy status to other drugs, medicaments and biological substances; Z63.0 Problems in relationship with spouse or partner
CPT/HCPCS: 36415; 80048; 80053; 80076; 80143; 80307; 82077; 82550; 84443; 84703; 85025; 85027; 93005; 93041; 94760; 96372; 96374; 99285; J1650; J2405

== ENCOUNTER 2024-08-27 13:00 | Inpatient (IN) | payer OTHER ==
[~2024-08-27] VITALS: Ht 162.6 cm; Wt 70.3 kg
[~2024-08-27 13:00] MED LIST changes: +FOLI1TAB11 PO; +FOLIC ACID 1MG TAB PO SCH; +LEXA1TAB PO; +MULTIVITAMINS/MINERALS THERAP 1 TAB PO SCH; +Multivitamins PO; +THIA100TA PO
[2024-08-27] MEDS ORDERED: MOM 30ML SUSPENSION UDC PO PRN (13:15)
[2024-08-27] MEDS ORDERED: IBUPROFEN 400MG TAB PO PRN (13:15)
[2024-08-27] MEDS ORDERED: ACETAMINOPHEN 325 MG TAB PO PRN (13:15)
[2024-08-27] MEDS ORDERED: MAALOX 30 ML SUSP *UDC PO PRN (13:15)
[2024-08-27] MEDS ORDERED: traZODone 50 MG TAB PO PRN (13:15)
[2024-08-27] MEDS ORDERED: diphenhydrAMINE 25MG CAP PO PRN (13:15)
[2024-08-27 14:25] VITALS: BP 128/64; TEMP 97.1; O2SAT 99
[2024-08-27 14:50] VITALS: BP 115/70; O2SAT 97
[2024-08-27] MEDS ORDERED: LORazepam 2 MG TAB PO PRN (15:30)
[2024-08-27] MEDS: THIAMINE 100 MG TAB PO SCH (20:45)
[2024-08-28 06:37] VITALS: BP 130/69
[2024-08-28 06:38] VITALS: BP 130/69; TEMP 97.1; O2SAT 97
[2024-08-28] MEDS: FOLIC ACID 1MG TAB PO SCH (09:06)
[2024-08-28] MEDS: MULTIVITAMINS/MINERALS THERAP 1 TAB PO SCH (09:06)
[2024-08-28] MEDS: VENLAFAXINE **XR** 37.5 MG CAPSULE PO SCH (09:06)
[2024-08-28 10:05] VITALS: BP 134/70; O2SAT 100
[2024-08-28] MEDS ORDERED: MULTTAB61 PO (13:15)
[2024-08-28] MEDS ORDERED: FOLI1TAB11 PO (13:15)
[2024-08-28] MEDS ORDERED: HOME MED LIST COMPLETE! XX SCH (13:15)
[2024-08-28] MEDS ORDERED: THIA100T7 PO (13:15)
[2024-08-28 15:25] VITALS: BP 126/58; TEMP 97.7; O2SAT 99
[2024-08-28 18:05] VITALS: BP 147/88; TEMP 97.2; O2SAT 97
[2024-08-29 06:20] VITALS: BP 129/59; TEMP 97.2; O2SAT 97
[2024-08-29 15:56] VITALS: BP 145/70; TEMP 98.1; O2SAT 99
[2024-08-30 06:28] VITALS: BP 122/55; TEMP 97; O2SAT 96
[2024-08-30] MEDS ORDERED: VENL37.598 PO (08:14)
[2024-08-30] MEDS ORDERED: TRAZ-252 PO (08:14)
== END 2024-08-30 10:15 | disposition home or self-care (01) | DRG 881 ==
LOC: M PSY 14:20
PROVIDERS: ADMIT Psychiatry & Neurology Psychiatry; ATTEND Psychiatry & Neurology Psychiatry
DX: F32.A Depression, unspecified (principal); F43.21 Adjustment disorder with depressed mood; K21.9 Gastro-esophageal reflux disease without esophagitis; F10.920 Alcohol use, unspecified with intoxication, uncomplicated; F41.9 Anxiety disorder, unspecified; Z91.51 Personal history of suicidal behavior; Z63.0 Problems in relationship with spouse or partner; Z79.899 Other long term (current) drug therapy; Z88.2 Allergy status to sulfonamides; Z88.8 Allergy status to other drugs, medicaments and biological substances; Z90.49 Acquired absence of other specified parts of digestive tract; Z87.891 Personal history of nicotine dependence

== ENCOUNTER 2024-10-25 09:16 | Day surgery (SDC) | payer OTHER ==
[~2024-10-25] VITALS: Ht 162.6 cm; Wt 68.0 kg
[~2024-10-25 09:16] MED LIST changes: -FOLIC ACID 1MG TAB PO SCH; +GLYCOPYRROLATE INJ 0.2 MG/ML 2 ML VIAL As Ordered ONE; +KETOROLAC 60MG 2ML VIAL As Ordered ONE; +LIDOCAINE 2% 100MG/5ML SDV (FOR ANES.) As Ordered ONE; +LR 1,000 ML IV SCH; +METOCLOPRAMIDE INJ 10MG/2ML VIAL As Ordered ONE; +MIDAZOLAM INJ 2MG/2ML VIAL As Ordered ONE; -MULTIVITAMINS/MINERALS THERAP 1 TAB PO SCH; +MULTTAB61 PO; +ONDANSETRON 4MG 2ML VIAL As Ordered ONE; +ROCURONIUM BROMIDE 50MG/5ML VIAL As Ordered ONE; +SUGAMMADEX SODIUM 500 MG/5 ML VIAL (BRIDION) As Ordered ONE; +THIA100T7 PO; +TRAZ-252 PO; +VENL37.598 PO; +VENL75CA47 PO; +fentaNYL 100 MCG/2 ML INJECTION As Ordered ONE; +propofoL 200 MG/20 ML VIAL As Ordered ONE
[2024-10-25] MEDS: SCOPOLAMINE 1MG TRANSDERMAL PATCH TOP ONE (10:04)
[2024-10-25] MEDS: ACETAMINOPHEN 500 MG TAB PO ONE (10:49)
[2024-10-25 11:36] LABS: HEMATOCRIT 41.7 % (36.0-47.0); HEMOGLOBIN 14.3 g/dl (12.0-15.5); MEAN CORPUSCULAR HGB CONC 34.3 g/dl (32.0-36.5); MEAN CORPUSCULAR VOLUME 90.5 fl (80.0-96.0); PLATELET COUNT, AUTOMATED 278 10^3/uL (150-450); RED BLOOD COUNT 4.61 10^6/uL (4.00-5.40); WHITE BLOOD COUNT 9.5 10^3/uL (4.0-10.0)
[2024-10-25] MEDS ORDERED: fentaNYL 100 MCG/2 ML INJECTION IV PRN (12:40)
[2024-10-25] MEDS ORDERED: ONDANSETRON 4MG 2ML VIAL IV PRN (12:40)
[2024-10-25] MEDS: oxyCODONE 5MG TAB PO PRN (13:32)
[2024-10-25 14:06] VITALS: BP 145/82; TEMP 98.1; O2SAT 98
== END 2024-10-25 14:22 | disposition home or self-care (01) ==
LOC: M SDC 09:16
PROVIDERS: ATTEND Student in an Organized Health Care Education/Training Program
DX: Z30.2 Encounter for sterilization (principal); N83.8 Other noninflammatory disorders of ovary, fallopian tube and broad ligament; Z30.432 Encounter for removal of intrauterine contraceptive device; F32.A Depression, unspecified; F41.9 Anxiety disorder, unspecified; Z79.899 Other long term (current) drug therapy; Z88.2 Allergy status to sulfonamides; Z88.8 Allergy status to other drugs, medicaments and biological substances; Z90.49 Acquired absence of other specified parts of digestive tract; Z87.891 Personal history of nicotine dependence
CPT/HCPCS: 36415; 58301; 58661; 81025; 85027; 86850; 86900; 86901; 88302; J0665; J1100; J1596; J1885; J2250; J2405; J2765; J3010

== ENCOUNTER → 2024-12-15 | Outpatient (REF) | payer OTHER ==
[~2024-12-15] MED LIST changes: -GLYCOPYRROLATE INJ 0.2 MG/ML 2 ML VIAL As Ordered ONE; -KETOROLAC 60MG 2ML VIAL As Ordered ONE; -LIDOCAINE 2% 100MG/5ML SDV (FOR ANES.) As Ordered ONE; -LR 1,000 ML IV SCH; -METOCLOPRAMIDE INJ 10MG/2ML VIAL As Ordered ONE; -MIDAZOLAM INJ 2MG/2ML VIAL As Ordered ONE; -ONDANSETRON 4MG 2ML VIAL As Ordered ONE; -ROCURONIUM BROMIDE 50MG/5ML VIAL As Ordered ONE; -SUGAMMADEX SODIUM 500 MG/5 ML VIAL (BRIDION) As Ordered ONE; -fentaNYL 100 MCG/2 ML INJECTION As Ordered ONE; -propofoL 200 MG/20 ML VIAL As Ordered ONE
[2024-12-15 19:48] LABS: Trichomonas vaginalis (AMP) NOT DETECTED (NEGATIVE)
[2024-12-15 20:12] LABS: GC DNA AMPLIFICATION NEGATIVE (NEGATIVE)
== END ==
LOC: M LAB REF 17:50
PROVIDERS: ATTEND Student in an Organized Health Care Education/Training Program
DX: R30.0 Dysuria (principal)

== ENCOUNTER 2025-02-19 21:24 | Emergency (ER) | payer OTHER ==
[~2025-02-19] VITALS: Ht 162.6 cm; Wt 69.6 kg
[2025-02-19] MEDS ORDERED: VENL37.598 PO (23:17)
[2025-02-20] MEDS: BOOSTRIX VACCINE (TETANUS/DIPHTH/ACEL. PERTUSSIS) 0.5ML SYR IM.IMMUN ONE (00:43)
[2025-02-20 00:57] VITALS: BP 117/69; TEMP 98; O2SAT 98
== END 2025-02-20 00:57 | disposition home or self-care (01) ==
LOC: M ED 21:24
DX: S61.210A Laceration without foreign body of right index finger without damage to nail, initial encounter (principal); W26.9XXA Contact with unspecified sharp object(s), initial encounter; Y92.009 Unspecified place in unspecified non-institutional (private) residence as the place of occurrence of the external cause; Y93.89 Activity, other specified; Y99.9 Unspecified external cause status; Z79.899 Other long term (current) drug therapy; Z88.2 Allergy status to sulfonamides

== ENCOUNTER → 2025-08-05 | Outpatient (CLI) | payer OTHER ==
[~2025-08-05] MED LIST changes: +ALBU2.5V10 NEB; +ALBU8.5H; +KETO-204 PO; +PRED20TA
== END ==
LOC: M WHC 13:28
PROVIDERS: ATTEND Family Medicine
DX: N63.24 Unspecified lump in the left breast, lower inner quadrant (principal)
CPT/HCPCS: 76642; 77066; G0279